=== PATIENT | female | born 1975 | race Caucasian/White ===

== ENCOUNTER 2016-10-18 22:06 | Emergency (ER) | payer OTHER | END 2016-10-18 23:50 | disposition home or self-care (01) | LOC: D.ER 22:06 | DX: M25.532 Pain in left wrist (principal); W01.0XXA Fall on same level from slipping, tripping and stumbling without subsequent striking against object, initial encounter; Y93.89 Activity, other specified; Y92.019 Unspecified place in single-family (private) house as the place of occurrence of the external cause ==

== ENCOUNTER → 2019-08-11 09:31 | Outpatient (CLI) | payer OTHER ==
--- NOTE | 2019-08-11 10:44 | NUR ---
TIME OUT PERFORMED AT 1022 BY CHAYO SAHNI(R) AND DR MCCARTHY. PT CONSENTED FOR RIGHT SHOULDER ARTHROGRAM WITH COMPUTED TOMOGRAPHY TO FOLLOW.
== END | disposition home or self-care (01) ==
LOC: D.RAD 09:30
PROVIDERS: ATTEND Orthopaedic Surgery
DX: M75.121 Complete rotator cuff tear or rupture of right shoulder, not specified as traumatic (principal)